=== PATIENT | female | born 2000 | race Caucasian/White ===

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

== ENCOUNTER 2021-03-12 10:33 | Emergency (ER) | payer OTHER ==
--- NOTE | 2021-03-12 10:53 | ED Physician Documentation ---
PD HPI ABD PAIN - Stated complaint Stated Complaint: ABD PX/NAUSEA - Chief complaint Chief Complaint: Abd Pain - History obtained from History obtained from: Patient - History of Present Illness Timing - onset: Today Timing - details: Abrupt onset Quality: Pain Location: Suprapubic Associated symptoms: Nausea. No: Fever, Vomiting, Dysuria Recently seen: Surgery - Additional information Additional information: This is a 20-year-old who is in the [employer] reports today with complaints of feeling very lightheaded and nauseous started abruptly while she was brushing her teeth. She did not vomit. She says yesterday she collapsed and passed out while brushing her teeth. Pain is centered in the lower abdomen and she recently had her wisdom tooth extracted 4 days ago she been taking amoxicillin and oxycodone for that pain. Denies but states that she has been on her menstrual cycle since January. Review of Systems Constitutional: denies: Fever Cardiac: denies: Palpitations Respiratory: denies: Dyspnea, Cough GI: reports: Abdominal Pain, Nausea. denies: Vomiting : reports: Vaginal bleeding, Irregular menses. denies: Dysuria, Frequency Skin: denies: Rash Neurologic: reports: Syncope (by report yesterday) PD PAST MEDICAL HISTORY - Present Medications Home Medications: Ambulatory Orders Medication Instructions Recorded Confirmed Amoxicillin 500 mg PO QID 03/12/21 03/12/21 Ibuprofen [Motrin] 1 tablet PO Q8H PRN 03/12/21 03/12/21 Naproxen 500 mg PO DAILY PRN 03/12/21 03/12/21 Ondansetron Odt [Zofran] 4 mg TL Q6H PRN #10 tablet 03/12/21 Sertraline [Zoloft] 25 mg PO DAILY 03/12/21 03/12/21 oxyCODONE/ACET 5/325 [Percocet 5 1 each PO Q4-6H 03/12/21 03/12/21 mg/325 mg] - Allergies Allergies/Adverse Reactions: Allergies Allergy/AdvReac Type Severity Reaction Status Date / Time No Known Drug Allergies Allergy Verified 03/12/21 10:40 PD ED PE NORMAL - Vitals Vital signs reviewed: Yes - General General: Alert and oriented X 3, Well developed/nourished, Other (Lying on her side in bed holding emesis bag) - HEENT HEENT: Atraumatic, PERRL - Neck Neck: No adenopathy - Cardiac Cardiac: RRR, No murmur - Respiratory Respiratory: No respiratory distress, Clear bilaterally - Abdomen Abdomen: Normal bowel sounds, Soft, Non distended, Other (Tender but no guarding mid-abd around umbilicus) - Derm Derm: Normal color, Warm and dry, No rash - Extremities Extremities: No edema - Neuro Neuro: Alert and oriented X 3, gas system operator 2-12 intact, Normal speech - Psych Psych: Normal mood Results - Vitals Vitals: Vital Signs - 24 hr 03/12/21 03/12/21 03/12/21 10:37 11:37 13:48 Temperature 36 C L 36.4 C L Heart Rate 76 60 82 Respiratory 16 18 16 Rate Blood Pressure 113/70 117/73 102/69 O2 Saturation 96 99 100 Oxygen O2 Source Room air - Labs Labs: Laboratory Tests 03/12/21 03/12/21 03/12/21 11:58 11:58 11:58 WBC 7.9 RBC 3.99 L Hgb 12.1 Hct 37.0 MCV 92.7 MCH 30.3 MCHC 32.7 RDW 12.5 Plt Count 251 MPV 9.6 Neut # (Auto) 5.7 Lymph # (Auto) 1.8 Morris # (Auto) 0.4 Eos # (Auto) 0.0 Baso # (Auto) 0.1 Absolute Nucleated RBC 0.00 Nucleated RBC % 0.0 Sodium 139 Potassium 4.6 Chloride 102 Carbon Dioxide 27 Anion Gap 10.0 BUN 21 H Creatinine 0.9 Estimated GFR (MDRD) 81 L Glucose 98 Calcium 9.5 Total Bilirubin 0.2 AST 15 ALT 14 Alkaline Phosphatase 43 Total Protein 7.5 Albumin 4.2 Globulin 3.3 Albumin/Globulin Ratio 1.3 Lipase 22 Serum HCG, Qual NEGATIVE Urine Color Urine Clarity Urine pH Ur Specific [place] Urine Protein Urine Glucose (UA) Urine Ketones Urine Occult Blood Urine Nitrite Urine Bilirubin Urine Urobilinogen Ur Leukocyte Esterase Urine RBC Urine WBC Ur Squamous Epith Cells Urine Bacteria Urine Mucus Ur Microscopic Review Urine Culture Comments 03/12/21 12:18 WBC RBC Hgb Hct MCV MCH MCHC RDW Plt Count MPV Neut # (Auto) Lymph # (Auto) Morris # (Auto) Eos # (Auto) Baso # (Auto) Absolute Nucleated RBC Nucleated RBC % Sodium Potassium Chloride Carbon Dioxide Anion Gap BUN Creatinine Estimated GFR (MDRD) Glucose Calcium Total Bilirubin AST ALT Alkaline Phosphatase Total Protein Albumin Globulin Albumin/Globulin Ratio Lipase Serum HCG, Qual Urine Color DARK YELLOW Urine Clarity CLOUDY Urine pH 5.5 Ur Specific [place] >=1.030 H Urine Protein 100 H Urine Glucose (UA) NEGATIVE Urine Ketones TRACE Urine Occult Blood LARGE H Urine Nitrite NEGATIVE Urine Bilirubin NEGATIVE Urine Urobilinogen 0.2 (NORMAL) Ur Leukocyte Esterase NEGATIVE Urine RBC TNTC H Urine WBC 0-3 Ur Squamous Epith Cells FEW Squamous Urine Bacteria Few Urine Mucus Moderate Strands Ur Microscopic Review INDICATED Urine Culture Comments NOT INDICATED PD MEDICAL DECISION MAKING - ED course Complexity details: re-evaluated patient, d/w patient ED course: 1350: Patient was given Zofran sublingual. When I went back for reevaluation she was sleeping. She is not labs look normal. She has some blood in her urine but she is still bleeding from her menses. No evidence of infection. She says she is feeling a little better. We will give her injection of Toradol for the pain. I wonder if the oxycodone is contributing to some of her lightheadedness and nausea so I recommended that she not take that. Would recommend the ibuprofen she was prescribed. She will be given an injection of Toradol prior to discharge. Departure - Departure Disposition: 01 Home, Self Care Clinical Impression: Abdominal pain, Nausea Condition: Stable Instructions: ED Abdominal Pain Unkn Cause Follow-Up: RENEE Jones [Provider Group] Prescriptions: Ondansetron Odt [Zofran] 4 mg TL Q6H PRN #10 tablet PRN Reason: Nausea / Vomiting Comments: Would recommend stopping the oxycodone. Take ibuprofen if needed for pain. Make sure he has something on your stomach when you take it. Also eat when you take the antibiotic. Drink plenty of fluids. You have a prescription at the [facility] in [place] for Zofran for nausea. [facility] Forms: Activity restrictions
[2021-03-12] MEDS ORDERED: ONDANSETRON ODT 4 MG TABLET TL STA (11:51)
[2021-03-12 12:02] LABS: BASOPHILS # (AUTO) 0.1 10^3/uL (0.0-0.1); BASOPHILS % (AUTO) 0.6 %; EOSINOPHILS % (AUTO) 0.5 %; HGB - HEMOGLOBIN 12.1 g/dL (12.0-16.0); LYMPHOCYTES # (AUTO) 1.8 10^3/uL (1.5-3.5); LYMPHOCYTES % (AUTO) 22.3 %; MEAN CORPUSCULAR HEMOGLOBIN 30.3 pg (27.0-31.0); MEAN CORPUSCULAR HGB CONC 32.7 g/dL (32.0-36.0); MEAN CORPUSCULAR VOLUME 92.7 fL (81.0-99.0); MEAN PLATELET VOLUME 9.6 fL (7.9-10.8); MONOCYTES # (AUTO) 0.4 10^3/uL (0.0-1.0); MONOCYTES % (AUTO) 4.8 %; NEUTROPHILS # (AUTO) 5.7 10^3/uL (1.5-6.6); NEUTROPHILS % (AUTO) 71.5 %; PLT - PLATELET COUNT 251 10^3/uL (130-450); RED BLOOD COUNT 3.99 10^6/uL (4.20-5.40); RED CELL DISTRIBUTION WIDTH 12.5 % (12.0-15.0); WHITE BLOOD COUNT 7.9 x10^3/uL (4.8-10.8)
[2021-03-12 12:17] LABS: ALBUMIN 4.2 g/dL (3.2-5.5); ALBUMIN/GLOBULIN RATIO 1.3 (1.0-2.2); BILIRUBIN,TOTAL 0.2 mg/dL (0.2-1.0); CALCIUM 9.5 mg/dL (8.5-10.3); CREATININE 0.9 mg/dL (0.4-1.0); POTASSIUM 4.6 mmol/L (3.5-5.0); TOTAL PROTEIN 7.5 g/dL (6.7-8.2)
[2021-03-12 12:32] LABS: GLUCOSE, URINE (UA) NEGATIVE (NEGATIVE); KETONES,URINE (UA) TRACE mg/dL (NEGATIVE); LEUKOCYTE ESTERASE, URINE NEGATIVE (NEGATIVE); NITRITE,URINE NEGATIVE (NEGATIVE); OCCULT BLOOD,URINE LARGE (NEGATIVE); PH,URINE 5.5 PH (5.0-7.5); PROTEIN,URINE 100 mg/dL (NEGATIVE); UROBILINOGEN,URINE 0.2 (NORMAL) E.U./dL (NORMAL)
[2021-03-12 12:33] LABS: HCG,QUALITATIVE BLOOD NEGATIVE
[2021-03-12 12:38] LABS: BILIRUBIN,URINE NEGATIVE (NEGATIVE); CLARITY,URINE CLOUDY (CLEAR); ICTOTEST,URINE NEGATIVE
[2021-03-12 13:25] LABS: BACTERIA,URINE Few /HPF (None Seen); MUCUS,URINE Moderate Strands; RBC,URINE TNTC /HPF (0-5); SQUAMOUS EPITHELIAL CELL,UR FEW Squamous (<= Few); WBC,URINE 0-3 /HPF (0-5)
[2021-03-12 13:48] VITALS: BP 102/69
[2021-03-12] MEDS ORDERED: KETOROLAC 60 MG/2 ML VIAL IM STA (13:55)
== END 2021-03-12 14:03 | disposition home or self-care (01) ==
LOC: ED 10:33
DX: R10.30 Lower abdominal pain, unspecified (principal); R11.0 Nausea; R42 Dizziness and giddiness
CPT/HCPCS: 36415; 80053; 81001; 83690; 84703; 85025; 99283; Q0162; 81003; 87086

== ENCOUNTER 2022-08-09 16:15 | Outpatient (CLI) | payer OTHER ==
[2022-08-09 20:44] LABS: BASOPHILS % (AUTO) 0.7 %; EOSINOPHILS # (AUTO) 0.1 10^3/uL (0.0-0.7); EOSINOPHILS % (AUTO) 1.8 %; HCT - HEMATOCRIT 36.9 % (37.0-47.0); HGB - HEMOGLOBIN 11.7 g/dL (12.0-16.0); LYMPHOCYTES # (AUTO) 1.5 10^3/uL (1.5-3.5); LYMPHOCYTES % (AUTO) 25.2 %; MEAN CORPUSCULAR HEMOGLOBIN 29.5 pg (27.0-31.0); MEAN CORPUSCULAR HGB CONC 31.7 g/dL (32.0-36.0); MEAN CORPUSCULAR VOLUME 92.9 fL (81.0-99.0); MONOCYTES # (AUTO) 0.4 10^3/uL (0.0-1.0); MONOCYTES % (AUTO) 7.2 %; NEUTROPHILS % (AUTO) 64.8 %; PLT - PLATELET COUNT 367 10^3/uL (130-450); RED BLOOD COUNT 3.97 10^6/uL (4.20-5.40); RED CELL DISTRIBUTION WIDTH 13.8 % (12.0-15.0); WHITE BLOOD COUNT 6.1 x10^3/uL (4.8-10.8)
[2022-08-09 20:57] LABS: ALBUMIN 3.7 g/dL (3.2-5.5); ALBUMIN/GLOBULIN RATIO 1.1 (1.0-2.2); BILIRUBIN,TOTAL 0.5 mg/dL (0.2-1.0); CALCIUM 9.1 mg/dL (8.5-10.3); CREATININE 0.7 mg/dL (0.4-1.0); TOTAL PROTEIN 7.1 g/dL (6.7-8.2)
== END 2022-08-09 16:30 | disposition home or self-care (01) ==
LOC: LAB.N 16:15
PROVIDERS: ATTEND Physician Assistant
DX: R10.9 Unspecified abdominal pain (principal)
CPT/HCPCS: 36415; 80053; 85025

== ENCOUNTER 2022-08-13 13:18 | Emergency (ER) | payer OTHER ==
[2022-08-13] MEDS ORDERED: ONDANSETRON ODT 4 MG TABLET TL STA (13:37)
[2022-08-13] MEDS ORDERED: MELOXICAM 7.5 MG TABLET PO STA (13:37)
--- NOTE | 2022-08-13 13:40 | ED Physician Documentation ---
History of Present Illness - Stated complaint Stated Complaint: ABD PX - Chief complaint Chief Complaint: Abd Pain - History obtained from History obtained from: Patient - History of Present Illness Pain level max: 7 Pain level now: 7 - Additonal information Additional information: 22-year-old female presents to the emergency department with pelvic pain. This been ongoing for the past 3 days. She was seen at the walk-in clinic. Had reportedly normal blood work, negative urinalysis and negative test. LMP was in April. She states that she has very irregular menses. She is on oral control. Worse with movement and palpation. Mild nausea. No fevers. No chills. No vaginal bleeding or discharge. No STD exposure. Review of Systems Constitutional: denies: Fever, Chills Throat: denies: Sore throat Cardiac: denies: Chest pain / pressure Respiratory: denies: Dyspnea, Cough GI: reports: Nausea. denies: Vomiting, Diarrhea Skin: denies: Rash Musculoskeletal: denies: Neck pain, Back pain Neurologic: denies: Headache PD PAST MEDICAL HISTORY - Past Medical History Past Medical History: Yes Psych: Depression, Anxiety - Past Surgical History Past Surgical History: No - Present Medications Home Medications: Ambulatory Orders Medication Instructions Recorded Confirmed Amoxicillin 500 mg PO QID 03/12/21 03/12/21 Ibuprofen [Motrin] 1 tablet PO Q8H PRN 03/12/21 03/12/21 Naproxen 500 mg PO DAILY PRN 03/12/21 03/12/21 Ondansetron Odt [Zofran] 4 mg TL Q6H PRN #10 tablet 03/12/21 Sertraline [Zoloft] 25 mg PO DAILY 03/12/21 03/12/21 oxyCODONE/ACET 5/325 [Percocet 5 1 each PO Q4-6H 03/12/21 03/12/21 mg/325 mg] - Allergies Allergies/Adverse Reactions: Allergies Allergy/AdvReac Type Severity Reaction Status Date / Time No Known Drug Allergies Allergy Verified 08/13/22 13:22 - Living Situation Living Arrangement: reports: At home - Social History Does the pt smoke?: No - Family History Family history: reports: Non contributory - POLST Patient has POLST: No PD ED PE NORMAL - Vitals Vital signs reviewed: Yes - General General: Alert and oriented X 3, No acute distress - HEENT HEENT: PERRL, Moist mucous membranes - Neck Neck: Supple, no meningeal sign - Cardiac Cardiac: RRR, Strong equal pulses - Respiratory Respiratory: No respiratory distress, Clear bilaterally - Abdomen Abdomen: Soft, Non distended, Other (Tender palpation suprapubic and bilateral low pelvis. No significant abdominal tenderness. No peritoneal signs.) - Back Back: No CVA TTP, No spinal TTP - Derm Derm: Warm and dry - Extremities Extremities: No edema, No calf tenderness / cord - Neuro Neuro: Alert and oriented X 3 - Psych Psych: Normal mood, Normal affect Results - Vitals Vitals: Vital Signs - 24 hr 08/13/22 13:22 Temperature 36.5 C Heart Rate 60 Respiratory 16 Rate Blood Pressure 110/75 O2 Saturation 99 Oxygen O2 Source Room air - Labs Labs: Laboratory Tests 08/13/22 08/13/22 08/13/22 16:08 16:08 16:50 WBC 7.3 RBC 4.23 Hgb 12.6 Hct 38.8 MCV 91.7 MCH 29.8 MCHC 32.5 RDW 13.6 Plt Count 398 MPV 9.0 Neut # (Auto) 4.6 Lymph # (Auto) 2.1 Martin # (Auto) 0.4 Eos # (Auto) 0.1 Baso # (Auto) 0.1 Absolute Nucleated RBC 0.00 Nucleated RBC % 0.0 Sodium 137 Potassium 4.1 Chloride 104 Carbon Dioxide 25 Anion Gap 8.0 BUN 15 Creatinine 0.7 Estimated GFR (MDRD) 106 Glucose 89 Calcium 9.1 Total Bilirubin 0.4 AST 15 ALT 12 Alkaline Phosphatase 42 Total Protein 7.2 Albumin 3.7 Globulin 3.5 Albumin/Globulin Ratio 1.1 Lipase 32 Urine Color YELLOW Urine Clarity CLEAR Urine pH 6.5 Ur Specific [place] 1.025 Urine Protein NEGATIVE Urine Glucose (UA) NEGATIVE Urine Ketones NEGATIVE Urine Occult Blood NEGATIVE Urine Nitrite NEGATIVE Urine Bilirubin NEGATIVE Urine Urobilinogen 2 H Ur Leukocyte Esterase NEGATIVE Ur Microscopic Review NOT INDICATED Urine Culture Comments NOT INDICATED Urine HCG, Qual NEGATIVE - Rads (name of study) Pelvic ultrasound Radiology: Final report received, See rad report CT abdomen pelvis Radiology: Final report received, See rad report PD Medical Decision Making - ED course Complexity details: reviewed results, re-evaluated patient, considered differential, d/w patient ED course: 22-year-old female presents to the emergency department with several days of lower abdominal pain. Pelvic ultrasound does not show any acute abnormalities. She had normal labs and normal urinalysis 3 days ago. Her CBC today is normal. Her chemistries are normal. Her urinalysis is negative. hCG is negative. CT is pending at the time of signout. The plan will be likely to discharge the patient home assuming her CT is normal. Patient is signed out to the oncoming emergency department physician. This document was made in part using voice recognition software. While efforts are made to proofread this document, sound alike and grammatical errors may occur. Departure - Departure Clinical Impression: Pelvic pain in female Condition: Stable
[2022-08-13 16:15] LABS: BASOPHILS # (AUTO) 0.1 10^3/uL (0.0-0.1); BASOPHILS % (AUTO) 0.8 %; EOSINOPHILS # (AUTO) 0.1 10^3/uL (0.0-0.7); EOSINOPHILS % (AUTO) 1.5 %; HCT - HEMATOCRIT 38.8 % (37.0-47.0); HGB - HEMOGLOBIN 12.6 g/dL (12.0-16.0); LYMPHOCYTES # (AUTO) 2.1 10^3/uL (1.5-3.5); LYMPHOCYTES % (AUTO) 28.9 %; MEAN CORPUSCULAR HEMOGLOBIN 29.8 pg (27.0-31.0); MEAN CORPUSCULAR HGB CONC 32.5 g/dL (32.0-36.0); MEAN CORPUSCULAR VOLUME 91.7 fL (81.0-99.0); MONOCYTES # (AUTO) 0.4 10^3/uL (0.0-1.0); MONOCYTES % (AUTO) 4.9 %; NEUTROPHILS # (AUTO) 4.6 10^3/uL (1.5-6.6); NEUTROPHILS % (AUTO) 63.5 %; PLT - PLATELET COUNT 398 10^3/uL (130-450); RED BLOOD COUNT 4.23 10^6/uL (4.20-5.40); RED CELL DISTRIBUTION WIDTH 13.6 % (12.0-15.0); WHITE BLOOD COUNT 7.3 x10^3/uL (4.8-10.8)
[2022-08-13 16:28] LABS: ALBUMIN 3.7 g/dL (3.2-5.5); ALBUMIN/GLOBULIN RATIO 1.1 (1.0-2.2); BILIRUBIN,TOTAL 0.4 mg/dL (0.2-1.0); CALCIUM 9.1 mg/dL (8.5-10.3); CREATININE 0.7 mg/dL (0.4-1.0); POTASSIUM 4.1 mmol/L (3.5-5.0); TOTAL PROTEIN 7.2 g/dL (6.7-8.2)
--- NOTE | 2022-08-13 16:33 | Ultrasound Report ---
PROCEDURE: Pelvic w/Transvag+Doppler Comp INDICATIONS: pelvic pain, B TECHNIQUE: Real-time scanning was performed of the pelvic organs, with image documentation. Additional endovagi nal scanning was necessary due to incomplete visualization of the adnexal and endometrial structures by transabdominal scanning. Doppler interrogation was performed of the ovaries bilaterally. COMPARISON: None. FINDINGS: No pathologic free abdominal or pelvic fluid. Uterus: Uterus is normal in size at 7.6 x 3.1 x 3.8 cm. Myometrium is homogeneous in echotexture. No discrete uterine fibroids. The endometrium measures 4.9 mm in combined thickness. There is no endome trial mass or fluid. Ovaries: Right ovary measures 2.3 x 1.5 x 1.6 cm in size with a volume of 2.8 cc. Left ovary measure s 2.5 x 1.4 x 2 cm in size with a volume of 3.7 cc there is no solid-appearing ovarian lesion. Normal appearing arterial and venous waveforms are confirmed to each ovary.] Other: No free pelvic fluid. IMPRESSION: 1. No evidence of ovarian torsion. No solid-appearing ovarian lesion. 2. Normal-appearing uterus and endometrium. Reviewed by: Homero Kim MD on 08/13/2022 4:32 PM PST Approved by: Homero Kim MD on 08/13/2022 4:32 PM PST Station ID: [id number]
[2022-08-13 17:06] LABS: BILIRUBIN,URINE NEGATIVE (NEGATIVE); GLUCOSE, URINE (UA) NEGATIVE (NEGATIVE); KETONES,URINE (UA) NEGATIVE (NEGATIVE); LEUKOCYTE ESTERASE, URINE NEGATIVE (NEGATIVE); NITRITE,URINE NEGATIVE (NEGATIVE); OCCULT BLOOD,URINE NEGATIVE (NEGATIVE); PH,URINE 6.5 PH (5.0-7.5); PROTEIN,URINE NEGATIVE (NEGATIVE); UROBILINOGEN,URINE 2 E.U./dL (NORMAL)
[2022-08-13 17:09] LABS: CLARITY,URINE CLEAR (CLEAR); HCG UR QUAL NEGATIVE
[2022-08-13] MEDS ORDERED: iohexoL-300 100 ML VIAL ONE (17:35)
[2022-08-13] MEDS ORDERED: iohexoL-300 100 ML VIAL IVP ONE (17:51)
--- NOTE | 2022-08-13 18:07 | CT Report ---
PROCEDURE: ABDOMEN/PELVIS W INDICATIONS: B LQ pelvic pain CONTRAST: 100ml omni 300 TECHNIQUE: After the administration of intravenous contrast, 5 mm thick sections acquired from the diaphragms to the symphysis. 5 mm thick coronal and sagittal reformats were acquired. For radiation dose reducti on, the following was used: automated exposure control, adjustment of mA and/or kV according to ruthy ent size. COMPARISON: Ultrasound pelvis, 08/13/2022. FINDINGS: Image quality: Excellent. ABDOMEN: Lung bases: Lung bases are clear. Heart size is normal. Solid organs: Liver and spleen are normal in size and enhancement. Gallbladder is normal. Biliary system is non dilated. Pancreas enhances normally. No adrenal nodules. Kidneys demonstrate normal size and enhancement, without hydronephrosis. Peritoneum and bowel: Bowel loops demonstrate normal wall thickness and caliber. Appendix is retroc ecal and appears normal. There is a large amount of stool in colon. No free fluid or air. Nodes and vessels: No retroperitoneal or mesenteric adenopathy by size criteria. Aorta and inferior vena cava are normal in size. Miscellaneous: No ventral hernias. PELVIS: Genitourinary: Bladder wall thickness is normal. Uterus and ovaries are grossly normal. Miscellaneous: No inguinal hernias or adenopathy. Bones: No suspicious bony lesions. No vertebral body compression fractures. IMPRESSION: 1. A cause for bilateral lower abdominal pain is not definitively identified. 2. Large amount of stool in colon. Reviewed by: Jono García MD on 08/13/2022 6:05 PM PST Approved by: Jono García MD on 08/13/2022 6:05 PM PST Station ID: [id number]
--- NOTE | 2022-08-13 18:15 | ED Physician Documentation ---
ED Addendum - Addendum Addendum: 08/13/22 18:[address] Rasheed at shift change. Briefly this is a young woman with several days worth of pelvic pain. On examination she appears comfortable, no significant tenderness. Dr. Rasheed asked me to follow-up on her CAT scan which shows a large amount of stool but no other pathology. I will prescribe some MiraLAX. Patient updated on results and comfortable with the plan. Diagnosis: 1. Abdominal pain 2. Constipation Prescriptions: MiraLAX 17 g p.o. 4 times daily as needed constipation #1 bottle Condition: Stable Disposition: Discharged home
[2022-08-13 18:24] VITALS: BP 121/86
== END 2022-08-13 18:23 | disposition home or self-care (01) ==
LOC: ED 13:18
DX: R10.2 Pelvic and perineal pain (principal)
CPT/HCPCS: 36415; 74177; 76830; 76856; 80053; 81003; 81025; 83690; 85025; 93975; 99283; 99284; A9270; Q0162; Q9967; 81001; 87086

== ENCOUNTER 2022-08-17 08:00 | Outpatient (CLI) | payer OTHER ==
--- NOTE | 2022-08-17 16:54 | XRAY Report ---
PROCEDURE: Wrist 3 View RT INDICATIONS: RIGHT WRIST PAIN TECHNIQUE: 3 views of the wrist were acquired. COMPARISON: None FINDINGS: Bones: No fractures or dislocations. No suspicious bony lesions. Scaphoid view: Scaphoid intact Soft tissues: No suspicious soft tissue calcifications. IMPRESSION: No evidence acute bony abnormality of the right wrist. If clinical suspicion and/or symptoms persist, further assessment with repeat plain films or advanced imaging (e.g., CT, MRI, or bone scan) may be helpful for further assessment. Reviewed by: Bennett Jorge MD on 08/17/2022 4:53 PM PST Approved by: Bennett Jorge MD on 08/17/2022 4:53 PM PST Station ID: [id number]
== END 2022-08-17 23:59 | disposition home or self-care (01) ==
LOC: DI.WOS 08:00
PROVIDERS: ATTEND Orthopaedic Surgery
DX: M25.531 Pain in right wrist (principal)

== ENCOUNTER 2022-09-08 12:01 | Day surgery (SDC) | payer OTHER ==
[~2022-09-08 12:01] MED LIST: ACETAMINOPHEN 500 MG TABLET PO ONE
[2022-09-08 12:20] LABS: HCG UR QUAL NEGATIVE
[2022-09-08] MEDS ORDERED: LACTATED RINGERS 1,000 ML IV ONE ×2 (12:43→15:42)
[2022-09-08] MEDS ORDERED: BUPIVACAINE 0.25% PF 10 ML VIAL ONE (13:02)
--- NOTE | 2022-09-08 13:03 | ANESTHESIA ---
Pre-Anesthesia VS, & Labs - Diagnosis right ganglion cyst - Procedure right ganglion cystectomy Vital Signs: Temp Pulse Resp BP Pulse Ox O2 Flow Rate 37 C 82 14 126/94 H 97 09/08/22 12:21 09/08/22 12:21 09/08/22 12:21 09/08/22 12:21 09/08/22 12:21 Height: 5 ft 6 in Weight (kg): 59 kg Body Mass Index: 20.9 BMI Classification: Normal - NPO >8 hours - Is Patient ?: No Home Medications and Allergies Home Medications: Ambulatory Orders Ascorbic Acid [Vitamin C] 500 mg PO DAILY 09/02/22 DULoxetine [Cymbalta] 90 mg PO DAILY 09/02/22 Ferrous Sulfate 325 mg PO DAILY 09/02/22 Mirtazapine 7.5 mg PO QPM PRN 09/02/22 Norgestimate-Ethinyl Estradiol [Fxx-Hy-Dpqsfuvi Tablet] 1 each PO DAILY 09/02/22 Prazosin [Minipress] 1 mg PO QPM 09/02/22 Zinc Gluconate [Zinc] 50 mg PO DAILY 09/02/22 Ascorbic Acid [Vitamin C] 500 mg PO DAILY 09/02/22 DULoxetine [Cymbalta] 90 mg PO DAILY 09/02/22 Ferrous Sulfate 325 mg PO DAILY 09/02/22 Mirtazapine 7.5 mg PO QPM PRN 09/02/22 Norgestimate-Ethinyl Estradiol [Rvg-Fo-Bzuijoom Tablet] 1 each PO DAILY 09/02/22 Prazosin [Minipress] 1 mg PO QPM 09/02/22 Zinc Gluconate [Zinc] 50 mg PO DAILY 09/02/22 Allergies/Adverse Reactions: Allergies Allergy/AdvReac Type Severity Reaction Status Date / Time No Known Drug Allergies Allergy Verified 08/13/22 13:22 Anes History & Medical History - Medical History Cardiovascular: reports: None Pulmonary: reports: None Gastrointestinal: reports: None Urinary: reports: Chronic bladder infection Musculoskeletal: reports: None Endocrine/Autoimmune: reports: None Skin: reports: None Exam General: Alert, Oriented x3 Dental: WNL Mouth Opening: Greater than 4 Fingerbreadths Neck Mobility: Normal Mallampati classification: I Thyromental Distance: greater than 6 cm Respiratory: Lungs clear Cardiovascular: Regular rate Plan Anesthesia Type: MAC Consent for Procedure(s) Verified and Reviewed: Yes Code Status: Attempt Resuscitation ASA classification: 1-Healthy patient Is this case an emergency?: No
[2022-09-08] MEDS ORDERED: MIDAZOLAM 2 MG/2 ML VIAL ONE (14:05)
[2022-09-08] MEDS ORDERED: fentaNYL 100 MCG/2 ML VIAL ONE ×2 (14:05→15:41)
[2022-09-08] MEDS ORDERED: PROPOFOL 200 MG/20 ML VIAL IVP ONE (14:06)
[2022-09-08] MEDS ORDERED: LIDOCAINE-MPF 2% 5 ML VIAL ONE (14:06)
[2022-09-08] MEDS ORDERED: ePHEDrine 50 MG/ML VIAL IVP PRN (14:41)
[2022-09-08] MEDS ORDERED: fentaNYL 100 MCG/2 ML VIAL IVP PRN ×2 (14:41→16:12)
[2022-09-08] MEDS ORDERED: ATROPINE ABBOJECT 1 MG/10 ML SYRINGE IVP PRN (14:41)
[2022-09-08] MEDS ORDERED: NALOXONE 0.4 MG/ML VIAL IVP PRN (14:41)
[2022-09-08] MEDS ORDERED: MORPHINE 2 MG/ML CARPUJECT IVP PRN (14:41)
[2022-09-08] MEDS ORDERED: ONDANSETRON 4 MG/2 ML VIAL IVP PRN (14:41)
[2022-09-08] MEDS ORDERED: HYDROmorphone 0.5 MG/0.5 ML SYRINGE IVP PRN (14:41)
[2022-09-08] MEDS ORDERED: DEXAMETHASONE 4 MG/ML VIAL ONE (14:45)
[2022-09-08] MEDS ORDERED: LACTATED RINGERS 1,000 ML IV SCH (15:00)
[2022-09-08] MEDS ORDERED: BUPIVACAINE 0.25% PF 30 ML VIAL SUBQ ONE (15:24)
--- NOTE | 2022-09-08 15:26 | OPERATIVE REPORT ---
Operative Report - General Procedure Date: 09/08/22 Planned Procedure: Excision dorsal ganglion cyst right wrist Pre-Op Diagnosis: Dorsal ganglion cyst right wrist Procedure Performed: Excision dorsal ganglion cyst right wrist Post Op Diagnosis: Same as preoperative diagnosis - Procedure Note Primary Surgeon: Yon Nazario MD Secondary Surgeon: Margo CABRERA Anesthesia Provider: Lori Garcia CRNA Anesthesia Technique: General LMA Pathology: Cystic mass sent to pathology for further identification, right wrist Estimated Blood Loss (mL): 5 Indications: This is a 22-year-old woman with a painful and symptomatic mass over the right wrist. She has tried conservative treatment and still has persistent pain. She has a well localized cystic mass over the dorsum of the right wrist, normal x- rays, no history of trauma. Because of the chronic pain, lack of improvement, she agreed to surgical excision of the dorsal mass. She participated in shared decision making and signed informed consent agreeing to the procedure as outpatient at [facility]. Findings: The cystic mass had clear jellylike fluid and was removed en bloc, mass localized between the scapholunate and capitate. The mass was sent to pathology for further identification; clinically appeared to have classic appearance of a dorsal ganglion cyst. Complications: None - Other Other Information/Narrative: The patient was brought to the operating room, placed in a supine position. The right arm was placed over an arm extension table. A pneumatic tourniquet was applied to the proximal right arm. After satisfactory anesthesia was obtained, the right upper extremity was prepped and draped in a sterile manner in the usual fashion. A timeout procedure was performed by the entire operating room team and all were in agreement. The wrist was placed over a bump to provide wrist flexion. The mass is well demarcated and a horizontal incision based over the center of the mass was performed. After the skin had been incised, skin hooks were inserted and a spreading technique was utilized to expose the mass and protect the superficial radial nerve. Most of the dissection was with tenotomy scissors. The extensor pollicis longus and long wrist extensors and the second compartment were protected and retracted radially, the extensor digitorum commonness was retracted in an ulnar direction. An Allis clamp was used to apply traction to the mass and the dissection proceeded from superficial to deep removing some capsule with the entire mass over the dorsum of the midcarpal joint. After the mass had been excised, the mass was punctured with egress of clear jelly fluid. The entire surgical procedure was performed with the Zeiss 3.2X loupe magnification. The tourniquet was deflated; tourniquet time approximately 35 minutes. Hemostasis was achieved electrocautery. The wound was thoroughly irrigated. A 3-0 subcuticular closure was performed, Dermabond and then a short arm well-padded volar fiberglass splint to hold the wrist in slight extension. She tolerated the procedure well. A physician surveyor instrument assistant was medically necessary to help with prepping and draping, positioning, protection of vital structures, assistance during the procedure including wound closure, dressing and/or splinting.
[2022-09-08] MEDS ORDERED: oxyCODONE 5 MG TABLET PO PRN (15:42)
[2022-09-08] MEDS ORDERED: ACETAMINOPHEN 500 MG TABLET PO PRN (15:42)
[2022-09-08] MEDS ORDERED: CELECOXIB 100 MG CAPSULE PO PRN (15:42)
[2022-09-08] MEDS ORDERED: fentaNYL 250 MCG/5 ML VIAL IVP PRN (15:42)
[2022-09-08] MEDS ORDERED: ONDANSETRON ODT 4 MG TABLET TL PRN (15:42)
[2022-09-08] MEDS ORDERED: KETOROLAC 30 MG/ML VIAL IVP PRN (15:48)
--- NOTE | 2022-09-08 15:49 | ANESTHESIA POST OP EVALUATION ---
Anesthesia Post Eval - Post Anesthesia Eval Vitals: Last Vital Signs Temp 37 C 09/08/22 12:21 Pulse 102 H 09/08/22 15:47 Resp 17 09/08/22 15:47 BP 126/89 H 09/08/22 15:47 Pulse Ox 99 09/08/22 15:47 O2 Flow Rate CV Function Including HR & BP: Stable Pain Control: Satisfactory Nausea & Vomiting: Negative Mental Status: Baseline Respiratory Status: Airway Patent Hydration Status: Satisfactory Anesthesia Complications: None
[2022-09-08] MEDS ORDERED: KETOROLAC 15 MG/ML VIAL ONE (15:53)
[2022-09-08] MEDS ORDERED: HYDROmorphone 0.5 MG/0.5 ML SYRINGE ONE (16:03)
[2022-09-08 16:32] VITALS: BP 111/78
== END 2022-09-08 12:02 | disposition home or self-care (01) ==
LOC: SDS 12:01
PROVIDERS: ATTEND Orthopaedic Surgery
PROC: 0RBN0ZZ Excision of Right Wrist Joint, Open Approach (ICD-10-PCS; principal; 2022-09-08 13:00)
DX: M67.431 Ganglion, right wrist (principal)
CPT/HCPCS: 25111; 81025; A9270; J1170; J3010; J7120

== ENCOUNTER 2022-10-11 15:00 | Outpatient (CLI) | payer OTHER ==
[2022-10-11 20:58] LABS: CHLAMYDIA TRACHOMATIS DNA NEGATIVE (NEGATIVE); NEISSERIA GONORRHOEAE DNA NEGATIVE (NEGATIVE)
[2022-10-11 21:07] LABS: BACTERIAL VAGINOSIS DNA POSITIVE (NEGATIVE); CANDIDA GLABRATA DNA NEGATIVE (NEGATIVE); CANDIDA GROUP DNA POSITIVE (NEGATIVE); CANDIDA KRUSEI DNA NEGATIVE (NEGATIVE); TRICHOMONAS VAGINALIS DNA NEGATIVE (NEGATIVE)
== END 2022-10-11 15:15 | disposition home or self-care (01) ==
LOC: LAB.N 15:00
PROVIDERS: ATTEND Physician Assistant
DX: R30.0 Dysuria (principal)
CPT/HCPCS: 81514; 87491; 87591; 87661